=== PATIENT | male | born 1985 | race African-American/Black ===

== ENCOUNTER → 2018-09-28 | Outpatient (CLI) | payer MEDICARE | LOC: GMAE 11:09 | PROVIDERS: ATTEND Family Medicine | DX: R94.6 Abnormal results of thyroid function studies (principal); Z79.899 Other long term (current) drug therapy ==

== ENCOUNTER → 2019-10-04 | Outpatient (CLI) | payer MEDICARE | LOC: GMAE 10:48 | PROVIDERS: ATTEND Family Medicine | DX: Z79.899 Other long term (current) drug therapy (principal); E78.5 Hyperlipidemia, unspecified ==

== ENCOUNTER → 2020-04-03 | Outpatient (CLI) | payer MEDICARE | LOC: GMAE 14:23 | PROVIDERS: ATTEND Family Medicine | DX: F44.5 Conversion disorder with seizures or convulsions (principal) ==

== ENCOUNTER → 2020-11-29 | Outpatient (CLI) | payer MEDICARE | LOC: GMAE 12:13 | PROVIDERS: ATTEND Family Medicine | DX: Z79.899 Other long term (current) drug therapy (principal); F44.5 Conversion disorder with seizures or convulsions ==